=== PATIENT | female | born 1985 | race Caucasian/White ===

== ENCOUNTER 2022-11-14 14:42 | Outpatient (CLI) | payer BC | END 2022-11-14 14:43 | disposition home or self-care (01) | LOC: TBSIIMAG 14:42 | PROVIDERS: ATTEND Neurological Surgery | DX: M54.50 Low back pain, unspecified (principal); M47.817 Spondylosis without myelopathy or radiculopathy, lumbosacral region | CPT/HCPCS: 72100 ==